=== PATIENT | male | born 1970 | race Caucasian/White ===

== ENCOUNTER 2023-11-21 12:45 | Inpatient (IN) | payer BC, SELFPAY ==
[2023-11-21] VITALS (12 sets, daily range): BP systolic 127–163; BP diastolic 64–100; BMI 34.4
[2023-11-21] MEDS: DUONEB 3 ML INH ×3 (05:31→18:49)
--- NOTE | 2023-11-21 06:27 | ED.GENMED ---
History of Present Illness
General
Chief Complaint: Breathing Problem
Source: patient
Exam Limitations: none
Time Seen by Provider: 11/21/23 06:19
Nursing documentation reviewed up to this point in time: agreed with
Travel History
Have you had any contact with someone who has COVID-19?: No
Do you have any symptoms of coronavirus? Fever > 100 degrees, chills, cough, shortness of breath, sore throat, loss of taste or smell, muscle aches, or headache?: No
History of Present Illness
History of Present Illness:
53-year-old male presents emergency department due to coughing, wheezing, shortness of fevers. 2 days ago he saw primary care he was given a shot of Rocephin, steroids DuoNebs and started on a Z-Cain. He is not getting better. He was negative for
COVID and flu 2 days ago.
Past History
Past History
ED Past Medical History: Asthma and Other (Kidney stones)
ED Past Surgical History: Orthopedic (Arm surgery, spinal fusion), Tonsilectomy, Urological (Multiple kidney stone removal) and Other (Sinus surgery)
Social History
Tobacco: Non-smoker
Alcohol: None
Drug: None
Personal:
Living: with family
Employment: Employed
Review of Systems
Review of Systems
Allergies reviewed?: Yes
All Other Systems: Not applicable
Constitutional: Reports fever and chills
EENT: Reports runny nose
Respiratory: Reports cough and trouble breathing
Cardiac: Reports no symptoms
ABD/GI: Reports no symptoms
: Reports no symptoms
Musculoskeletal: Reports no symptoms
Skin: Reports no symptoms
Neurological: Reports no symptoms
Endocrine: Reports no symptoms
Hematologic/Lymphatic: Reports no symptoms
Psychiatric: Reports no symptoms
Phy Exam
Physical Exam
Physical Exam:
Physical Exam
General: Temperature 99.8
Neck: supple. no meningeal signs. normal posterior pharynx
Heart: s1/s2 regular rate and rhythm, no murmur. equal radial
pulses.
HEENT: Pupils equal round reactive to light, EOMI
Lungs: Tachypnea. Faint wheezing bilatera, coughing ly
Abdomen: normal bowel sounds. not tender. no CVAT
Neuro: alert and oriented. no focal neurological deficits cranial nerves II through XII intact
Skin: no rash
Psychiatric: well kept. interactive and cooperative
Extremities: no edema. no calf tenderness. negative homans. good distal pulses
Scores
Heart Failure Risk
Heart Failure Risk Score: Not Applicable
Course
Orders/Labs/Results
Orders:
Orders
11/21/23 05:30
Ipratropium/Albuterol Sulfate [Duoneb] 3 ml .ROUTE .STK-MED ONE
11/21/23 05:31
Ipratropium/Albuterol Sulfate [Duoneb] 3 ml INH R NOW ONE
11/21/23 06:25
Cardiac Monitoring- Treatment ONCE
IV Insert/Care/Rem.- Treatment PRN
Dexamethasone Sod Phosphate [Decadron] 10 mg IV NOW STA
Ipratropium/Albuterol Sulfate [Duoneb] 3 ml INH R NOW STA
Pulse Ox/cont/shift [RESP] Stat
Quantity: 1
11/21/23 06:26
CR Chest - 2 Views Urgent
Comment:
Reason For Exam: short of breath, fever
11/21/23 07:00
Blood Culture Q30M
MARILOU Source: Blood/Venous
Specimen Description:
11/21/23 07:01
COVID-19 Antigen Urgent
Source: Nasal Swab
Complete Blood Count/With Diff Urgent
Comprehensive Metabolic Panel Urgent
Lactic Acid Q4H
Comment: CANCEL 2nd LACTIC ACID IF 1st LACTIC ACID IS LESS THAN 2
Blood Culture Q30M
MARILOU Source: Blood/Venous
Specimen Description:
Influenza A+B Rapid Molecular Urgent
MARILOU Source: Nasal Swab
Specimen Description:
11/21/23 07:32
Ibuprofen [Motrin] 600 mg PO NOW STA
11/21/23 08:35
Albuterol Sulfate [Ventolin Nebules] 7.5 mg INH R NOW STA
11/21/23 08:39
Oseltamivir Phosphate [Tamiflu] 75 mg PO NOW STA
Abnormal Lab Results
11/21/23
07:01
MCH 26.2 L pg
(27.0-31.0)
MCHC 32.4 L g/dL
(33.0-37.0)
RDW 16.1 H %
(11.5-14.5)
Abs Immat Gran (auto) 0.1 H 10^3/uL
(0-0.05)
Absolute Monos (auto) 0.8 H 10^3/uL
(0.1-0.6)
Immature Gran % 0.6 H %
(0-0.5)
Lymphocytes % 17.4 L %
(20.5-51.1)
Monocytes % 10.2 H %
(1.7-9.3)
Sodium 133 L mmol/L
(135-145)
Glucose 100 H mg/dl
(70-99)
Calcium 8.3 L mg/dl
(8.4-10.2)
AST 67 H U/L
(17-59)
11/21/23 07:01
11/21/23 07:01
Vital Signs
Initial and Last Documented VS:
Initial Vital Signs
Pulse Resp BP Pulse Ox
108 24 149/100 100
11/21/23 03:55 11/21/23 03:55 11/21/23 03:55 11/21/23 03:55
Last Documented Vital Signs
Temp Pulse Resp BP Pulse Ox
98.8 F 117 14 127/64 93
11/21/23 09:33 11/21/23 08:45 11/21/23 08:45 11/21/23 08:00 11/21/23 08:45
MDM/Problems Addressed
Differential Diagnosis Includes:
Pneumonia, CHF
MDM/Problems Addressed:
53-year-old male with influenza A, viral pneumonia. Patient requiring multiple rounds of nebulizer treatments. Tamiflu given. Decadron given. Suspect asthma component as well.
Chronic conditions affecting care: Asthma
Acute Exacerbation and/or Progression of Chronic Illness: Asthma
*Radiology
Radiology exam reviewed: preliminary read by ED provider (Chest x-ray shows viral pneumonia pattern)
*Pulse Oximetry
Patient hypoxic: no
*EKG
Interpreted by ED Provider?: NA
*Rehabilitation Psychologist Interpretation
Rate: tachycardiac
Interpretation: abnormal
Heart Rate: 112
Rhythm: sinus tachycardia
*Critical Care Note
Total Time (30-74mins, 75-104mins- exclusive of procedures): Not Applicable
Patient Management
Social determinants of health affecting care: Living situation
Discussion with other providers: Hospitalist
Escalation/DeEscalation of care consider admission/obs:
Admit indicated
ED Attending Note
-
Portions of this chart may have been created with voice recognition software.� Occasional wrong word or��sound alike� substitutions may have occurred due to the inherent limitations of voice recognition software.
Discharge Plan
Departure
Patient Disposition: Admit
Date of Disposition: 11/21/23
Time of Disposition: 08:36
Admit to: IMU
Presentation/result/management discussed w/ accepting MD/DO: Hospitalist
Patient with high blood pressure during this ER visit?: Yes
Condition: Fair
Discharge Problem:
Influenza A with pneumonia, Asthma exacerbation
Referrals:
UNKNOWN,NO INTERVIEW [Family Provider] -
Interventions
Interventions:
*Risk Screen - Suicide Last Done: 11/21/23 03:55
*General Assessment Last Done: 11/21/23 03:55
*Neglect/Abuse Screening Last Done: 11/21/23 03:55
ED- Fall Risk Assessment Last Done: 11/21/23 05:37
*ED COVID-19 Vaccine History Last Done: 11/21/23 05:37
ED- Cardiac Assessment Last Done: 11/21/23 05:37
ED- Pulmonary Assessment Last Done: 11/21/23 08:28
Discharge Date and Time
Print Language: URDU
[2023-11-21 07:15] LABS: % Basophils 0.5 % (0-2); % Eosinophils 0.1 % (0-6); % Immature Granulocytes 0.6 % (0-0.5); % Lymphocytes 17.4 % (20.5-51.1); % Monocytes 10.2 % (1.7-9.3); % Neutrophils 71.2 % (42.2-75.2); Absolute Immature Granulocytes 0.1 10^3/uL (0-0.05); Absolute Lymphocytes 1.4 10^3/uL (1.2-3.4); Absolute Monocytes 0.8 10^3/uL (0.1-0.6); Absolute Neutrophils 5.9 10^3/uL (1.4-6.5); Hematocrit 44.1 % (39.0-52.0); Hemoglobin 14.3 g/dL (13.0-18.0); Mean Corp Hgb Conc. 32.4 g/dL (33.0-37.0); Mean Corpuscular Hgb 26.2 pg (27.0-31.0); Mean Corpuscular Volume 80.8 fL (80.0-94.0); Mean Platelet Volume 9.1 fL (7.4-10.4); Nucleated Red Blood Cells % 0 % (-); Platelet Count 306 10^3/uL (130-400); Red Blood Cell Count 5.46 10^6/uL (4.70-6.10); Red Cell Dist. Width 16.1 % (11.5-14.5); White Blood Cell Count 8.2 10^3/uL (4.8-10.8)
[2023-11-21] MEDS: DECADRON 10 MG IV (07:24)
[2023-11-21 07:25] LABS: Lactic Acid 1.6 mmol/L (0.7-2.0)
[2023-11-21 07:26] LABS: ALT (SGPT) 32 U/L (0-50); AST (SGOT) 67 U/L (17-59); Albumin 3.7 g/dl (3.5-5.0); Alkaline Phosphatase 78 U/L (38-126); Blood Urea Nitrogen 15 mg/dl (9-20); Calcium 8.3 mg/dl (8.4-10.2); Carbon Dioxide 26 mmol/L (22-30); Chloride 103 mmol/L (98-107); Estimated Creatinine Clearance 99 ml/min; Glucose 100 mg/dl (70-99); Potassium 3.9 mmol/L (3.5-5.1); Sodium 133 mmol/L (135-145); Total Bilirubin 0.6 mg/dl (0.2-1.3); Total Protein 6.3 g/dl (6.3-8.2); eGFR > 60.00
[2023-11-21 07:45] LABS: COVID-19 Antigen Negative (Negative)
[2023-11-21] MEDS: MOTRIN 600 MG PO (07:49)
[2023-11-21] MEDS: VENTOLIN NEBULES 7.5 MG INH (08:47)
[2023-11-21] MEDS: TAMIFLU 75 MG PO ×2 (08:51→20:48)
--- NOTE | 2023-11-21 12:23 | HPS.HSE ---
Family Physician
-
Family Physician: NO INTERVIEW UNKNOWN
Chief Complaint
-
SOB
History of Present Illness
53 y/o M hx of asthma, allergies, HTN, presents to ER for coughing, wheezing and SOB. Symptom onset was 2 days ago. Symptoms have progressed since onset. He was seen outpatient and given Rocephin, Azithromycin. COVID/Flu was negative at that time.
He denies any CP. No fevers. feels weak overall. No other complaints.
He and are in town visiting their child. They live in [place].
Medical History
Past Medical History
Past Medical History: Reports Other (asthma, allergies, HTN)
Past Surgical History: Reports Other (Orthopedic (Arm surgery, spinal fusion), Tonsilectomy, Urological (Multiple kidney stone removal) and Other (Sinus surgery))
Social History
Tobacco: Non-smoker
Alcohol: None
Drug: None
Personal:
Living: With Family
Employment: Employed
Family History
Family History: Not pertinent
Allergies / Home Medications
Allergies reflects when Allergies were last updated in [facility].
Home Medications with original date entered in [facility]
Allergy/Medication List:
Allergies
Allergy/AdvReac Type Severity Reaction Status Date / Time
No Known Allergies Allergy Unverified 11/21/23 03:54
Home Medications
azithromycin 250 mg tablet 250 mg PO DAILY 11/21/23
cholecalciferol (vitamin D3) 50 mcg (2,000 unit) capsule 50 mcg PO DAILY 11/21/23
ipratropium 0.5 mg-albuterol 3 mg (2.5 mg base)/3 mL nebulization soln 3 ml inhalation R Q6 PRN sob/wheezing 11/21/23
loratadine 10 mg tablet 10 mg PO DAILY 11/21/23
montelukast 10 mg tablet 10 mg PO HS 11/21/23
prednisone 10 mg tablet 10 mg PO .TAPER 11/21/23
telmisartan 40 mg-hydrochlorothiazide 12.5 mg tablet 1 tab PO DAILY 11/21/23
testosterone cypionate 200 mg/mL intramuscular oil 200 mg IM Q14D 11/21/23
Review of Systems
-
A 12 point ROS was completed and negative except as noted: Yes
Physical Exam
Vital Signs
Vital Signs
Temp Pulse Resp BP Pulse Ox
98.8 F 111 18 155/84 96
11/21/23 09:33 11/21/23 11:30 11/21/23 11:30 11/21/23 11:00 11/21/23 11:30
Physical Exam
General: Well Developed and Well Nourished
HEENT: NormoCephalic and Anicteric
Respiratory: Wheezes and Rhonchi
Cardiac: S1/S2, Regular Rhythm and Tachycardia
GI: Soft
Neuro: AO x 3
Hematologic/Lymphatic: No Lymphadenopathy
Psych: Calm
Laboratory Results
-
11/21/23 07:01
11/21/23 07:01
Laboratory Results
Lactic Acid Cancelled 11/21/23 10:30
Total Bilirubin 0.6 mg/dl (0.2-1.3) 11/21/23 07:01
AST 67 U/L (17-59) H 11/21/23 07:01
ALT 32 U/L (0-50) 11/21/23 07:01
Alkaline Phosphatase 78 U/L (38-126) 11/21/23 07:01
Data Reviewed
-
Lab Data: Labs Reviewed by me
Impression/Plan
-
Assessment:
SOB
Acute influenza A infection
Acute asthma exacerbation
possibly atypical PNA on CXR
- currently not on O2
- start IV steroids, day 1
- start Doxy, day 1
- start Tamiflu, day 1
- Nebs scheduled and prn
- IS/Acapella/Mucinex
Essential HTN
- continue ARB/HCTZ combo
DVT ppx: Lovenox
Code: Full
[2023-11-21] MEDS: DUONEB INH ×2 (18:36→20:49)
[2023-11-21] MEDS: DECADRON 4 MG IV (18:47)
[2023-11-21] MEDS: LOVENOX 40 MG SC (18:47)
[2023-11-21] MEDS: MUCINEX 1200 MG PO (20:48)
[2023-11-21] MEDS: VIBRAMYCIN 100 MG PO (20:49)
[2023-11-21] MEDS: SINGULAIR 10 MG PO (22:07)
[2023-11-22] MEDS: TYLENOL 650 MG PO (00:04)
[2023-11-22 00:20] VITALS: BP 156/83; BMI 32.6
[2023-11-22] MEDS: DECADRON 4 MG IV ×3 (02:35→17:28)
[2023-11-22 07:00] VITALS: BP 153/101
[2023-11-22] MEDS: DUONEB 3 ML INH ×4 (07:57→18:03)
[2023-11-22] MEDS: MUCINEX 1200 MG PO ×2 (08:15→21:16)
[2023-11-22] MEDS: ORETIC 12.5 MG PO (08:15)
[2023-11-22] MEDS: VITAMIN D3 (cholecalciferol) 50 MCG PO (08:15)
[2023-11-22] MEDS: VIBRAMYCIN 100 MG PO ×2 (08:15→21:16)
[2023-11-22] MEDS: COZAAR 50 MG PO (08:15)
[2023-11-22] MEDS: TAMIFLU 75 MG PO ×2 (08:15→21:16)
[2023-11-22] MEDS: CLARITIN 10 MG PO (08:15)
[2023-11-22 08:26] LABS: % Immature Granulocytes 0.5 % (0-0.5); % Lymphocytes 18.2 % (20.5-51.1); % Monocytes 2.6 % (1.7-9.3); % Neutrophils 78.7 % (42.2-75.2); Absolute Lymphocytes 1.1 10^3/uL (1.2-3.4); Absolute Monocytes 0.2 10^3/uL (0.1-0.6); Absolute Neutrophils 4.9 10^3/uL (1.4-6.5); Hematocrit 47.5 % (39.0-52.0); Hemoglobin 14.9 g/dL (13.0-18.0); Mean Corp Hgb Conc. 31.4 g/dL (33.0-37.0); Mean Corpuscular Hgb 25.9 pg (27.0-31.0); Mean Corpuscular Volume 82.6 fL (80.0-94.0); Nucleated Red Blood Cells % 0 % (-); Platelet Count 322 10^3/uL (130-400); Red Blood Cell Count 5.75 10^6/uL (4.70-6.10); Red Cell Dist. Width 16.1 % (11.5-14.5); White Blood Cell Count 6.2 10^3/uL (4.8-10.8)
[2023-11-22 10:13] LABS: Blood Urea Nitrogen 16 mg/dl (9-20); Calcium 9.2 mg/dl (8.4-10.2); Carbon Dioxide 23 mmol/L (22-30); Chloride 105 mmol/L (98-107); Estimated Creatinine Clearance > 125 ml/min; Glucose 179 mg/dl (70-99); Potassium 4.1 mmol/L (3.5-5.1); Sodium 136 mmol/L (135-145); eGFR > 60.00
--- NOTE | 2023-11-22 13:22 | W.PN.HOSP.TC ---
Today's Communication/Plan
-
continue current plan of care
Assessment / Plan
Assessment / Plan
Assessment:
SOB
Acute influenza A infection
Acute asthma exacerbation
possibly atypical PNA on CXR
Acute hypoxic respiratory insufficiency
- currently not on O2
- continue IV steroids, day 2
- continue Doxy, day 2
- continue Tamiflu, day 2
- Nebs scheduled and prn
- IS/Acapella/Mucinex
Essential HTN
- continue ARB/HCTZ combo
DVT ppx: Lovenox
Code: Full
Anticipated Discharge: Within 24 hours
Subjective/Interval History
-
Date of Service: November 22, 2023
SOB and wheezing improving
now on 1L NC (down from 3L NC)
Objective Data
-
Labs:
Laboratory Results
11/22/23 11/22/23
08:07 09:20
WBC 6.2
Hgb 14.9
Hct 47.5
Plt Count 322
Sodium Cancelled 136
Potassium Cancelled 4.1
Chloride Cancelled 105
Carbon Dioxide Cancelled 23
BUN Cancelled 16
Creatinine Cancelled 0.8
Glucose Cancelled 179 H
Calcium Cancelled 9.2
Vital Signs:
Vital Signs
Temp Pulse Resp BP Pulse Ox
97.2 F 95 16 153/101 96
11/22/23 07:00 11/22/23 11:17 11/22/23 11:17 11/22/23 07:00 11/22/23 08:01
Physical Exam
-
General: No Apparent Distress
HEENT: Normocephalic and Atraumatic
Respiratory: Wheezes (faint); Negative Rales or Rhonchi
Cardiac: Regular Rhythm and S1/S2
GI: Soft and Nontender
Genito-urinary: No Costovertebral Tender
Musculoskeletal: No Edema
Neuro: AO x 3
Hematologic / Lymphatic: No Lymphadenopathy
Psych: Calm
Data Reviewed
-
Total Time Spent with Patient (in minutes): 42
Labs: Labs Reviewed by me
--- NOTE | 2023-11-22 15:01 | CM ---
CM met with pt and spouse at bedside.
Pt presently in this area visiting family, plan to return to [place] today via flight however ended up at .
Prior to admission, pt independent. Uses CPAP and nebulizer at home. 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
Discharge dispo is home no needs. Plans to return to [place] by flight once stable. Pt currently on 2L, told plan is to wean off oxygen prior to dc.
Pt follows with a PCP in [place] and local pharmacy preference is for [facility] in [place].
[2023-11-22 15:05] VITALS: BP 140/88
[2023-11-22] MEDS: LOVENOX 40 MG SC (17:28)
[2023-11-22] MEDS: SINGULAIR 10 MG PO (21:16)
[2023-11-22 23:04] VITALS: BP 134/85
[2023-11-23] MEDS: DECADRON 4 MG IV ×3 (02:17→16:44)
[2023-11-23 06:19] LABS: % Basophils 0.2 % (0-2); % Immature Granulocytes 0.3 % (0-0.5); % Monocytes 5.2 % (1.7-9.3); % Neutrophils 78.3 % (42.2-75.2); Absolute Lymphocytes 1.5 10^3/uL (1.2-3.4); Absolute Monocytes 0.5 10^3/uL (0.1-0.6); Absolute Neutrophils 7.1 10^3/uL (1.4-6.5); Hematocrit 46.7 % (39.0-52.0); Hemoglobin 14.9 g/dL (13.0-18.0); Mean Corp Hgb Conc. 31.9 g/dL (33.0-37.0); Mean Corpuscular Hgb 25.8 pg (27.0-31.0); Mean Corpuscular Volume 80.8 fL (80.0-94.0); Mean Platelet Volume 9.3 fL (7.4-10.4); Nucleated Red Blood Cells % 0 % (-); Platelet Count 332 10^3/uL (130-400); Red Blood Cell Count 5.78 10^6/uL (4.70-6.10); Red Cell Dist. Width 15.9 % (11.5-14.5); White Blood Cell Count 9.1 10^3/uL (4.8-10.8)
[2023-11-23 06:44] LABS: Blood Urea Nitrogen 20 mg/dl (9-20); Calcium 8.9 mg/dl (8.4-10.2); Carbon Dioxide 24 mmol/L (22-30); Chloride 103 mmol/L (98-107); Estimated Creatinine Clearance > 125 ml/min; Glucose 133 mg/dl (70-99); Potassium 4.3 mmol/L (3.5-5.1); Sodium 134 mmol/L (135-145); eGFR > 60.00
[2023-11-23] MEDS: DUONEB 3 ML INH ×3 (07:47→16:00)
[2023-11-23 08:09] VITALS: BP 147/99
[2023-11-23] MEDS: COZAAR 50 MG PO (08:09)
[2023-11-23] MEDS: CLARITIN 10 MG PO (08:09)
[2023-11-23] MEDS: VIBRAMYCIN 100 MG PO (08:09)
[2023-11-23] MEDS: VITAMIN D3 (cholecalciferol) 50 MCG PO (08:09)
[2023-11-23] MEDS: TAMIFLU 75 MG PO (08:09)
[2023-11-23] MEDS: MUCINEX 1200 MG PO (08:09)
[2023-11-23] MEDS: ORETIC 12.5 MG PO (08:10)
--- NOTE | 2023-11-23 09:48 | W.PN.HOSP.TC ---
Addendum entered and electronically signed by Alex Carroll MD 11/23/23 10:05:
More than 30 minutes spent in discharge including
Final examination of the patient
Summarizing hospital stay
Instructions for continuing care to all relevant caregivers
Preparation of discharge records, prescriptions, and referral forms
Total time spent (in minutes):41
Original Note:
Today's Communication/Plan
-
dc this evening after PM Steroid dose
Assessment / Plan
Assessment / Plan
Assessment:
SOB
Acute influenza A infection
Acute asthma exacerbation
possibly atypical PNA on CXR
Acute hypoxic respiratory insufficiency
- weaned to RA; 95% - previously required 3L NC
- continue IV steroids, day 3 - dc on prolonged taper + PPI
- continue Doxy, day 3/
- continue Tamiflu, day 3/5
- Nebs scheduled and prn - patient has neb
- add rescue inhaler
- IS/Acapella/Mucinex
Essential HTN
- continue ARB/HCTZ combo
DVT ppx: Lovenox
Code: Full
Anticipated Discharge: Today
Subjective/Interval History
-
Date of Service: November 23, 2023
off O2, 95%
reports SOB improving, wheezing improve, feels more energetic than admission
no chest pain, fever/chills
Objective Data
-
Labs:
Laboratory Results
11/23/23
05:09
WBC 9.1
Hgb 14.9
Hct 46.7
Plt Count 332
Sodium 134 L
Potassium 4.3
Chloride 103
Carbon Dioxide 24
BUN 20
Creatinine 0.8
Glucose 133 H
Calcium 8.9
Vital Signs:
Vital Signs
Temp Pulse Resp BP Pulse Ox
97.7 F 80 15 147/99 95
11/23/23 08:09 11/23/23 08:09 11/23/23 08:09 11/23/23 08:09 11/23/23 08:18
I&O
11/22/23 11/23/23 11/24/23
06:59 06:59 06:59
Intake Total 1919
Balance 1919
Physical Exam
-
General: No Apparent Distress
HEENT: Normocephalic and Atraumatic
Respiratory: Wheezes (faint); Negative Rhonchi
Cardiac: Regular Rhythm and S1/S2
GI: Soft
Genito-urinary: No Costovertebral Tender
Neuro: AO x 3
Hematologic / Lymphatic: No Lymphadenopathy
Psych: Calm
Data Reviewed
-
Total Time Spent with Patient (in minutes): 43
Labs: Labs Reviewed by me
--- NOTE | 2023-11-23 10:04 | W.DS.TRANS ---
DC Summary - [employer]
-
Discharge Instructions:
Discharge Diagnosis/Procedures influenza A infection and wheezing with asthma
flare up
Diet Regular
Activity As tolerated
Bathing Restrictions None
Instructions:
Stand-Alone Forms:
Changes to Home Medications: No
Discharge Medications:
DC Medications w/original date entered in [facility]
cholecalciferol (vitamin D3) 50 mcg (2,000 unit) capsule 50 mcg PO DAILY Supplement 11/21/23
loratadine 10 mg tablet 10 mg PO DAILY Allergies 11/21/23
montelukast 10 mg tablet 10 mg PO HS Allergies 11/21/23
telmisartan 40 mg-hydrochlorothiazide 12.5 mg tablet 1 tab PO DAILY Blood Pressure 11/21/23
testosterone cypionate 200 mg/mL intramuscular oil 200 mg IM Q14D Hormonal Agent 11/21/23
albuterol sulfate 90 mcg/actuation aerosol inhaler 2 puff inhalation Q6H PRN shortness of breath or wheezing #8.5 grams 11/23/23
doxycycline hyclate 100 mg capsule 100 mg PO Q12 #6 caps 11/23/23
guaifenesin 600 mg tablet, extended release 12 hr 1,200 mg (2 x 600 mg) PO Q12 #20 tabs 11/23/23
ipratropium 0.5 mg-albuterol 3 mg (2.5 mg base)/3 mL nebulization soln 3 ml inhalation R Q6 PRN sob/wheezing #90 mL 11/23/23
oseltamivir 75 mg capsule 75 mg PO BID #6 caps 11/23/23
prednisone 10 mg tablet 10 mg PO DIRECTED Anti-Inflammatory #30 tabs 11/23/23
Home Medication Changes
Pending Results: No
Total time spent discharging patient (in min): 41
--- NOTE | 2023-11-23 11:23 | CM ---
Patient has been medically cleared for discharge without any additional skilled services. will transport.
[2023-11-23 16:16] VITALS: BP 139/79
[2023-11-23] MEDS: LOVENOX SC (16:37)
== END 2023-11-23 17:31 | disposition home or self-care (01) | DRG 194 ==
LOC: 2 NORTH 12:45
PROVIDERS: ADMITTING PHYSICIAN Internal Medicine; EMERGENCY PHYSICIAN Emergency Medicine
DX: J10.1 Influenza due to other identified influenza virus with other respiratory manifestations (principal); J45.901 Unspecified asthma with (acute) exacerbation; I10 Essential (primary) hypertension
CPT/HCPCS: 71046; 80048; 80053; 83605; 85025; 87040; 87502; 87811; 94640; 94644; 94760; 96374; 99285